=== PATIENT | male | born 1980 | race Caucasian/White ===

== ENCOUNTER 2020-08-24 12:15 | Inpatient (IN) | payer SELFPAY ==
[2020-08-24] MEDS ORDERED: METHYLPREDNISOLONE INJ 125 MG/2 ML SDV IV ONE (12:40)
--- NOTE | 2020-08-24 12:58 | ER Document Report ---
ED General <NAVID FERNANDEZ - Last Filed: 08/24/20 18:19> <IDRIS ARNOLD - Last Filed: 08/24/20 19:06> - General Chief Complaint: Breathing Difficulty Stated Complaint: SHORTNESS OF BREATH Notes: Patient is a 40-year-old male who presents emergency department with a chief complaint of shortness of breath. On August 16, the patient tested positive for COVID-19. Patient states that he has been short of breath. He went to [place] and when he came back, he states that he felt like he had jet lag, but then got tested and was positive for COVID-19. Patient takes Lexapro for depression. Denies any other past medical history. (NAVID FERNANDEZ) - Related Data Allergies/Adverse Reactions: No Known Allergies Allergy (Unverified 08/24/20 12:59) Past Medical History - General Information source: Patient - Social History Smoking Status: Unknown if Ever Smoked Family History: Reviewed & Not Pertinent <IDRIS ARNOLD - Last Filed: 08/24/20 19:06> Physical Exam <NAVID FERNANDEZ - Last Filed: 08/24/20 18:19> - Vital signs Vitals: Temp Pulse Resp BP Pulse Ox 99.6 F 116 H 24 H 144/82 H 91 L 08/24/20 12:27 08/24/20 12:27 08/24/20 12:27 08/24/20 12:27 08/24/20 12:27 - Notes Notes: PHYSICAL EXAMINATION: GENERAL: Appears ill. HEAD: Normocephalic, atraumatic. EYES: PERRL, conjunctiva normal, all extraocular movements intact, sclera nonicteric ENT: Moist mucous membranes. NECK: Supple, no noticeable swelling, redness, rash. Normal range of motion. LUNGS: Equal breath sounds bilaterally and clear to auscultation. No wheezes rales or rhonchi. CARDIOVASCULAR: S1-S2, tachycardic, regular rhythm. Radial pulses 2+, normal. ABDOMEN: Normoactive bowel sounds. Soft, nontender, no guarding, no rebound tenderness, and no masses palpated. EXTREMITIES: Normal strength and range of motion, no pitting or edema. No cyanosis. NEUROLOGICAL: Moves all extremities upon command. Strength 5/5 in all extremities. PSYCH: Normal mood, normal affect. SKIN: Warm, dry. No rash, lesions, ulcerations noted. Normal skin turgor. (TIMOTEO FERNANDEZHANIE Claudia) Course - Laboratory Result Diagrams: 08/24/20 12:50 08/24/20 12:50 <NAVID FERNANDEZ - Last Filed: 08/24/20 18:19> - Laboratory Result Diagrams: 08/24/20 12:50 08/24/20 12:50 <IDRIS ARNOLD - Last Filed: 08/24/20 19:06> - Vital Signs Vital signs: Temp Pulse Resp BP Pulse Ox 99.6 F 116 H 40 H 152/83 H 90 L 08/24/20 12:27 08/24/20 12:27 08/24/20 15:00 08/24/20 14:53 08/24/20 17:00 - Laboratory Laboratory results interpreted by me: 08/24/20 08/24/20 08/24/20 12:50 12:50 15:55 RBC 4.09 L Hgb 12.9 L Hct 36.2 L Lymph % (Auto) 6.0 L Seg Neutrophils % 87.6 H Carbonic Acid 0.88 L ABG pH 7.54 H ABG pCO2 29.1 L ABG pO2 56.9 L ABG HCO3 24.3 H ABG O2 Saturation 93.0 L Sodium 133.8 L Glucose 117 H AST 62 H ALT 51 H Discharge - Discharge Admitting Provider: Indu (Hospitalist) Unit Admitted: Telemetry - COVID positive <NAVID FERNANDEZ - Last Filed: 08/24/20 18:19> <IDRIS ARNOLD - Last Filed: 08/24/20 19:06> - Discharge Clinical Impression: Hypoxia, COVID-19 Condition: Stable Disposition: ADMITTED INPATIENT
[2020-08-24 13:18] LABS: ABSOLUTE LYMPHOCYTES (AUTO) 0.5 10^3/uL (0.5-4.7); ABSOLUTE MONOCYTES (AUTO) 0.5 10^3/uL (0.1-1.4); ABSOLUTE NEUT (AUTO) 7.6 10^3/uL (1.7-8.2); BASOPHILS % (AUTO) 0.2 % (0-2); HEMATOCRIT 36.2 % (37.9-51.0); HEMOGLOBIN 12.9 g/dL (13.5-17.0); MEAN CORPUSCULAR HEMOGLOBIN 31.6 pg (27.0-33.4); MEAN CORPUSCULAR HGB CONC 35.7 g/dL (32.0-36.0); MEAN CORPUSCULAR VOLUME 89 fl (80-97); MONOCYTES % (AUTO) 6.2 % (3-13); PLATELET COUNT 193 10^3/uL (150-450); RED BLOOD COUNT 4.09 10^6/uL (4.35-5.55); SEGMENTED NEUTROPHILS % (AUTO) 87.6 % (42-78); TOTAL CELLS COUNTED % (AUTO) 100 %; WHITE BLOOD COUNT 8.7 10^3/uL (4.0-10.5)
[2020-08-24 13:52] LABS: ALKALINE PHOSPHATASE 66 U/L (38-126); ANION GAP 9 (5-19); ASPARTATE AMINO TRANSFERASE 62 U/L (17-59); BILIRUBIN,DIRECT 0.1 mg/dL (0.0-0.4); BILIRUBIN,TOTAL 0.7 mg/dL (0.2-1.3); BLOOD UREA NITROGEN 10 mg/dL (7-20); CALCIUM 8.6 mg/dL (8.4-10.2); CARBON DIOXIDE 26 mmol/L (22-30); CHLORIDE 99 mmol/L (98-107); GLUCOSE 117 mg/dL (75-110); POTASSIUM 3.8 mmol/L (3.6-5.0); TOTAL PROTEIN 7.7 g/dL (6.3-8.2)
--- NOTE | 2020-08-24 14:11 | RADIOLOGY REPORT (SQ) ---
EXAM DESCRIPTION: CHEST SINGLE VIEW IMAGES COMPLETED DATE/TIME: 08/24/2020 1:57 pm REASON FOR STUDY: sob COMPARISON: None. EXAM PARAMETERS: NUMBER OF VIEWS: One view. TECHNIQUE: Single frontal radiographic view of the chest acquired. RADIATION DOSE: NA LIMITATIONS: None. FINDINGS: LUNGS AND PLEURA: Infiltrate involving both lower lung zones greater on the left along the lateral aspect of the lung. Infectious etiology should be considered. Chronic changes scarring can not be excluded without previous imaging studies of the chest. MEDIASTINUM AND HILAR STRUCTURES: No masses. Contour normal. HEART AND VASCULAR STRUCTURES: Heart normal in size. Normal vasculature. BONES: No acute findings. HARDWARE: None in the chest. OTHER: No other significant finding. IMPRESSION: Atelectasis or infiltrate both lower lung zones. Scarring possible but cannot be determ ined without previous imaging studies of the chest. TECHNICAL DOCUMENTATION: JOB ID: [id number] 2010 [employer]- All Rights Reserved Reading location - IP/workstation name: [email or web address]
[2020-08-24] MEDS ORDERED: IPRATROPIUM/ALBUTEROL 0.5-2.5 MG/3 ML AMPUL NEB ONE (14:54)
[2020-08-24] MEDS ORDERED: ACETAMINOPHEN 325 MG TABLET PO ONE (14:54)
[2020-08-24] MEDS ORDERED: AZITHROMYCIN INJ 500 MG VIAL IV ONE (14:56)
--- NOTE | 2020-08-24 18:07 | EKG REPORT ---
SEVERITY:- OTHERWISE NORMAL ECG - SINUS TACHYCARDIA : Confirmed by: Bill Truong MD 24-Aug-2020 18:06:32
[2020-08-24 18:31] LABS: ARTERIAL BLOOD BASE EXCESS 2.7 mmol/L; ARTERIAL BLOOD FIO2 ROOM AIR; ARTERIAL BLOOD H2CO3 0.88 mmol/L (1.05-1.35); ARTERIAL BLOOD HCO3 24.3 mmol/L (20-24); ARTERIAL BLOOD PCO2 29.1 mmHg (35-45); ARTERIAL BLOOD PH 7.54 (7.35-7.45); ARTERIAL BLOOD PO2 56.9 mmHg (80-100); ARTERIAL BLOOD TOTAL CO2 25.2 mmol/L (23-27)
--- NOTE | 2020-08-24 18:56 | ER Document Report ---
ED Respiratory Problem - General Chief Complaint: Shortness Of Breath Stated Complaint: SHORTNESS OF BREATH Time Seen by Provider: 08/24/20 14:09 Notes: Patient is a 40-year-old male who presents emergency department with a chief complaint of shortness of breath. On August 16, the patient tested positive for COVID-19. Patient states that he has been short of breath. He went to [place] and when he came back, he states that he felt like he had jet lag, but then got tested and was positive for COVID-19. Patient takes Lexapro for depression. Denies any other past medical history. - Related Data Allergies/Adverse Reactions: No Known Allergies Allergy (Unverified 08/24/20 12:59) Past Medical History - General Information source: Patient - Social History Smoking Status: Never Smoker Frequency of alcohol use: Occasional Drug Abuse: None Family History: Reviewed & Not Pertinent Review of Systems - Review of Systems Notes: REVIEW OF SYSTEMS: CONSTITUTIONAL : Denies recent unintentional weight loss. See HPI. EENT: Denies eye, ear, throat, or mouth pain, discharge, or symptoms. Denies nasal or sinus congestion. CARDIOVASCULAR: Denies chest pain. RESPIRATORY: See HPI. GASTROINTESTINAL: Denies nausea, vomiting, and diarrhea. Denies abdominal pain. Denies constipation. GENITOURINARY: Denies difficulty urinating, burning, blood in urine, urgency or frequency. MUSCULOSKELETAL: Denies neck and back pain. Denies joint pain or swelling. SKIN: Denies rash, itchiness, or lesions HEMATOLOGIC : Denies easy bruising or bleeding. LYMPHATIC: Denies swollen, painful, enlarged glands. NEUROLOGICAL: Denies no numbness or tingling denies weakness. Denies headache. Denies altered mental status. Denies alteration in speech. PSYCHIATRIC: Denies stress, anxiety, alteration in sleep patterns, or depression. All other systems reviewed and negative. Physical Exam - Vital signs Vitals: Temp Pulse Resp BP Pulse Ox 99.6 F 116 H 24 H 144/82 H 91 L 08/24/20 12:27 08/24/20 12:27 08/24/20 12:27 08/24/20 12:27 08/24/20 12:27 - Notes Notes: PHYSICAL EXAMINATION: GENERAL: Appears ill. HEAD: Normocephalic, atraumatic. EYES: PERRL, conjunctiva normal, all extraocular movements intact, sclera non icteric ENT: Moist mucous membranes. NECK: Supple, no noticeable swelling, redness, rash. Normal range of motion. LUNGS: Equal breath sounds bilaterally and clear to auscultation. No wheezes ra les or rhonchi. CARDIOVASCULAR: S1-S2, tachycardic, regular rhythm. Radial pulses 2+, normal. ABDOMEN: Normoactive bowel sounds. Soft, nontender, no guarding, no rebound tenderness, and no masses palpated. EXTREMITIES: Normal strength and range of motion, no pitting or edema. No cyanosis. NEUROLOGICAL: Moves all extremities upon command. Strength 5/5 in all extremities. PSYCH: Normal mood, normal affect. SKIN: Warm, dry. No rash, lesions, ulcerations noted. Normal skin turgor. Course - Re-evaluation Re-evalutation: 08/24/20 18:15 Hematology does not show a leukocytosis, but there is a left shift. Pneumonia noted on chest x-ray. Patient received azithromycin. Blood gas shows hypoxemia with a PO2 of 56.9 O2 saturation of 93%. This was on room air. LFTs are slightly elevated, most likely due to fatty liver disease. I spoke with Mercy Cruz NP. Patient will be admitted to the telemetry floor for COVID-19. - Vital Signs Vital signs: Temp Pulse Resp BP Pulse Ox 99.6 F 116 H 40 H 152/83 H 90 L 08/24/20 12:27 08/24/20 12:27 08/24/20 15:00 08/24/20 14:53 08/24/20 17:00 - Laboratory Result Diagrams: 08/24/20 12:50 08/24/20 12:50 Laboratory results interpreted by me: 08/24/20 08/24/20 08/24/20 12:50 12:50 15:55 RBC 4.09 L Hgb 12.9 L Hct 36.2 L Lymph % (Auto) 6.0 L Seg Neutrophils % 87.6 H Carbonic Acid 0.88 L ABG pH 7.54 H ABG pCO2 29.1 L ABG pO2 56.9 L ABG HCO3 24.3 H ABG O2 Saturation 93.0 L Sodium 133.8 L Glucose 117 H AST 62 H ALT 51 H Discharge - Discharge Clinical Impression: Hypoxia, COVID-19 Condition: Stable Disposition: ADMITTED INPATIENT Admitting Provider: Indu (Hospitalist) Unit Admitted: Telemetry - COVID positive
[2020-08-24] MEDS ORDERED: ALBUTEROL SULFATE 0.083% NEB 2.5 MG/3 ML AMPUL NEB PRN (19:12)
[2020-08-24] MEDS ORDERED: ACETAMINOPHEN 325 MG TABLET PO PRN (19:12)
[2020-08-24] MEDS ORDERED: PROMETHAZINE HCL INJ 25 MG/1 ML VIAL IV PRN (19:17)
[2020-08-24] MEDS ORDERED: MAG HYDROX/AL HYDROX/SIMETH SUSP 30 ML UDCUP PO PRN (19:17)
[2020-08-24] MEDS ORDERED: KETOROLAC TROMETHAMINE INJ/PF 30 MG/1 ML SDV IV PRN (19:18)
[2020-08-24] MEDS ORDERED: GUAIFENESIN SYRP 200 MG/10 ML UDC PO PRN (19:18)
[2020-08-24] MEDS ORDERED: PHARMACY COMMUNICATION ORDER MC NR (19:30)
[2020-08-24] MEDS ORDERED: LORAZEPAM INJ 2 MG/1 ML VIAL IV PRN (19:44)
--- NOTE | 2020-08-24 19:47 | PDOC H&P ---
History of Present Illness Admission Date/PCP: 08/24/20 18:37 Patient complains of: Shortness of breath History of Present Illness: MADAY BRUNO is a 40 year old male with a past medical history significant for depression and heavy EtOH use (sixpack beer daily; no history of dependence/withdrawal) who tested positive for COVID-19 on 08/16/2020 at the [facility]. Patient reports that he has had progressively worsening fatigue, generalized malaise, dyspnea on exertion (able to walk approximately 10 to 15 feet prior to needing to rest), 3-4 word tachypnea, nonproductive cough, pleuritic chest pain, subjective fever with shaking chills and night sweats, loss of taste and smell, and diarrhea. Patient reports that his spouse tested positive at the same time; she has recovered well but he continued to worsen. After prompting from her, he sought evaluation in the emergency department. In the emergency department he was found to have a fever of 99.6, tachycardia (HR 104) slightly elevated blood pressure, tachypnea (RR 40), and hypoxia on room air (90%). CBC showed neutrophilia, ABG reveals uncompensated respiratory alkalosis, and chemistry overall unremarkable. Chest x-ray demonstrates bibasilar infiltrates. He was provided supplemental oxygen, Solu-Medrol, and azithromycin. He is referred to the hospitalist service for further evaluation and management of the above-stated complaints and findings. Past Medical History Cardiac Medical History: Reports: None Pulmonary Medical History: Reports: None EENT Medical History: Reports: None Neurological Medical History: Reports: None Endocrine Medical History: Reports: Obesity Renal/ Medical History: Reports: None Malignancy Medical History: Reports: None GI Medical History: Reports: None Musculoskeltal Medical History: Reports: None Skin Medical History: Reports: None Psychiatric Medical History: Reports: Depression Traumatic Medical History: Reports: None Hematology: Reports: None Infectious Medical History: Reports: None Past Surgical History Past Surgical History: Reports: Orthopedic Surgery - Right wrist Social History Information Source: Patient Lives with: Family Smoking Status: Never Smoker Electronic Cigarette use?: No Frequency of Alcohol Use: Heavy Amount of Alcoholic Beverages Per Day: 6 beers Hx Recreational Drug Use: No Hx Prescription Drug Abuse: No - Advance Directive Resuscitation Status: Full Code Family History Family History: Reviewed & Not Pertinent Parental Family History Reviewed: Yes Children Family History Reviewed: Yes Sibling(s) Family History Reviewed.: Yes Medication/Allergy Home Medications: No Home Medications 08/24/20 Allergies/Adverse Reactions: No Known Allergies Allergy (Unverified 08/24/20 12:59) Review of Systems Constitutional: PRESENT: anorexia, chills, fatigue, fever(s), headache(s), night sweats, weakness. ABSENT: weight gain, weight loss Eyes: ABSENT: visual disturbances Ears: ABSENT: hearing changes Cardiovascular: PRESENT: dyspnea on exertion. ABSENT: chest pain, edema, orthropnea, palpitations Respiratory: PRESENT: cough, dyspnea, hemoptysis, sputum Gastrointestinal: PRESENT: diarrhea. ABSENT: abdominal pain, constipation, hematemesis, hematochezia, nausea, vomiting Genitourinary: ABSENT: dysuria, hematuria Musculoskeletal: ABSENT: joint swelling Integumentary: ABSENT: rash, wounds Neurological: ABSENT: abnormal gait, abnormal speech, confusion, dizziness, focal weakness, syncope Psychiatric: ABSENT: anxiety, depression, homidical ideation, suicidal ideation Endocrine: ABSENT: cold intolerance, heat intolerance, polydipsia, polyuria Hematologic/Lymphatic: ABSENT: easy bleeding, easy bruising Physical Exam Vital Signs: Temp Pulse Resp BP Pulse Ox 99.6 F 116 H 40 H 152/83 H 90 L 08/24/20 12:27 08/24/20 12:27 08/24/20 15:00 08/24/20 14:53 08/24/20 17:00 General appearance: PRESENT: no acute distress, cooperative, obese, well- developed, well-nourished, other - Acutely ill-appearing Head exam: PRESENT: atraumatic, normocephalic Eye exam: PRESENT: conjunctiva pink, EOMI, PERRLA. ABSENT: scleral icterus Mouth exam: PRESENT: moist, tongue midline Respiratory exam: PRESENT: clear to auscultation tonya, symmetrical, tachypnea, other - Supplemental oxygen by nasal cannula. ABSENT: rales, rhonchi, wheezes Cardiovascular exam: PRESENT: RRR, tachycardia. ABSENT: diastolic murmur, rubs, systolic murmur Pulses: PRESENT: normal dorsalis pedis pul Vascular exam: PRESENT: normal capillary refill GI/Abdominal exam: PRESENT: normal bowel sounds, soft. ABSENT: distended, guarding, mass, organolmegaly, rebound, tenderness Rectal exam: PRESENT: deferred Extremities exam: PRESENT: full ROM. ABSENT: calf tenderness, clubbing, pedal edema Musculoskeletal exam: PRESENT: ambulatory Neurological exam: PRESENT: alert, awake, oriented to person, oriented to place, oriented to time, oriented to situation, CN II-XII grossly intact. ABSENT: motor sensory deficit Psychiatric exam: PRESENT: appropriate affect, normal mood. ABSENT: homicidal ideation, suicidal ideation Skin exam: PRESENT: dry, intact, warm. ABSENT: cyanosis, rash Results Laboratory Results: 08/24/20 12:50 08/24/20 12:50 08/24/20 08/24/20 08/24/20 12:50 12:50 15:55 WBC 8.7 RBC 4.09 L Hgb 12.9 L Hct 36.2 L MCV 89 MCH 31.6 MCHC 35.7 RDW 13.0 Plt Count 193 Seg Neutrophils % 87.6 H Carbonic Acid 0.88 L HCO3/H2CO3 Ratio 27:1 ABG pH 7.54 H ABG pCO2 29.1 L ABG pO2 56.9 L ABG HCO3 24.3 H ABG O2 Saturation 93.0 L ABG Base Excess 2.7 FiO2 ROOM AIR Sodium 133.8 L Potassium 3.8 Chloride 99 Carbon Dioxide 26 Anion Gap 9 BUN 10 Creatinine 0.69 Est GFR ( Amer) > 60 Glucose 117 H Calcium 8.6 Total Bilirubin 0.7 AST 62 H Alkaline Phosphatase 66 Total Protein 7.7 Albumin 4.0 08/24/20 12:50 Troponin I < 0.012 Impressions: Chest X-Ray 08/24/20 13:07 IMPRESSION: Atelectasis or infiltrate both lower lung zones. Scarring possible but cannot be determined without previous imaging studies of the chest. Assessment and Plan - Diagnosis (1) Pneumonia due to COVID-19 virus Is this a current diagnosis for this admission?: Yes Plan: Patient tested COVID positive 08/16/2020 at outpatient facility. We will check d-dimer, ferritin, CRP, LDH. blood and sputum cultures are pending. Patient is admitted to the medical floor on continuous cardiac telemetry and pulse oximetry. Consider full dose Lovenox pending d-dimer results. Provide supplemental oxygen and CPAP as needed maintain saturations greater than 90%. As needed nebulizer treatments. IV dexamethasone. P.o. azithromycin x5-day course IV remdesivir x5-day course Covid convalescent plasma Zinc, vitamin D, vitamin C, and melatonin supplementation. Encourage pulmonary toilet. Isolation precautions. Patient confirms FULL CODE status. (2) Acute respiratory failure with hypoxia Is this a current diagnosis for this admission?: Yes Plan: Secondary to #1. ABG shows uncompensated respiratory alkalosis with hypoxia. Chest x-ray shows bilateral infiltrates. Evaluation management as above. (3) Diarrhea due to COVID-19 Is this a current diagnosis for this admission?: Yes Plan: Encourage p.o. fluid. (4) Alcohol use Is this a current diagnosis for this admission?: Yes Plan: Patient admits to drinking 6 cans of beer daily. He denies history of dependen ce or withdrawal. We will ask nurses to monitor CIWA every 4 hours. As needed Ativan as needed and notify provider of score greater than 10. Daily thiamine and folic acid supplementation. - Time Time Spent with patient: 35 or more minutes Medications reviewed and adjusted accordingly: Yes Anticipated Discharge Disposition: Home, Self Care Anticipated Discharge Timeframe: >72 hrs - Inpatient Certification Based on my medical assessment, after consideration of the patient's comorbidities, presenting symptoms, or acuity I expect that the services needed warrant INPATIENT care.: Yes I certify that my determination is in accordance with my understanding of Medicare's requirements for reasonable and necessary INPATIENT services [42 CFR 412.3e].: Yes Medical Necessity: Failure to Improve With Outpatient Therapy, Need Close Monitoring Due to Risk of Patient Decompensation, Need for Nebulizer Therapy and Monitoring of Response, Risk of Complication if Not Cared For in Hospital
[2020-08-24 20:40] LABS: C-REACTIVE PROTEIN 86.6 mg/L (<10.0)
[2020-08-24] MEDS ORDERED: REMDESIVIR (EUA) 200 MG in NORMAL SALINE 250 ML IV ONE (22:00)
[2020-08-24] MEDS: ENOXAPARIN SODIUM INJ 40 MG/0.4 ML DISP.SYRIN SUBCUT SCH (22:11)
[2020-08-24] MEDS: MELATONIN 3 MG TABLET PO SCH (22:12)
[2020-08-25 06:03] LABS: ABSOLUTE LYMPHOCYTES (AUTO) 0.5 10^3/uL (0.5-4.7); ABSOLUTE MONOCYTES (AUTO) 0.4 10^3/uL (0.1-1.4); ABSOLUTE NEUT (AUTO) 4.6 10^3/uL (1.7-8.2); BASOPHILS % (AUTO) 0.1 % (0-2); HEMATOCRIT 36.1 % (37.9-51.0); LYMPHOCYTES % (AUTO) 8.8 % (13-45); MEAN CORPUSCULAR HEMOGLOBIN 31.8 pg (27.0-33.4); MEAN CORPUSCULAR HGB CONC 36.2 g/dL (32.0-36.0); MEAN CORPUSCULAR VOLUME 88 fl (80-97); MONOCYTES % (AUTO) 7.8 % (3-13); PLATELET COUNT 208 10^3/uL (150-450); RED BLOOD COUNT 4.11 10^6/uL (4.35-5.55); SEGMENTED NEUTROPHILS % (AUTO) 83.3 % (42-78); TOTAL CELLS COUNTED % (AUTO) 100 %; WHITE BLOOD COUNT 5.5 10^3/uL (4.0-10.5)
[2020-08-25 06:16] LABS: ALBUMIN 3.8 g/dL (3.5-5.0); ALKALINE PHOSPHATASE 69 U/L (38-126); ANION GAP 10 (5-19); ASPARTATE AMINO TRANSFERASE 66 U/L (17-59); BILIRUBIN,DIRECT 0.1 mg/dL (0.0-0.4); BILIRUBIN,TOTAL 0.6 mg/dL (0.2-1.3); BLOOD UREA NITROGEN 13 mg/dL (7-20); CALCIUM 9.2 mg/dL (8.4-10.2); CARBON DIOXIDE 26 mmol/L (22-30); CHLORIDE 100 mmol/L (98-107); GLUCOSE 152 mg/dL (75-110); POTASSIUM 4.1 mmol/L (3.6-5.0)
[2020-08-25] MEDS: THIAMINE HCL 100 MG TABLET PO SCH (09:52)
[2020-08-25] MEDS: FOLIC ACID 1 MG TABLET PO SCH (09:52)
[2020-08-25] MEDS: ZINC SULFATE 220 MG CAPSULE PO SCH (09:52)
[2020-08-25] MEDS: AZITHROMYCIN 250 MG TABLET PO SCH (09:52)
[2020-08-25] MEDS: ASCORBIC ACID 500 MG TABLET PO SCH ×2 (09:52→17:28)
[2020-08-25] MEDS: DOCUSATE SODIUM 100 MG CAPSULE PO SCH (09:52)
[2020-08-25] MEDS: ASPIRIN 81 MG TABLET, ENT COATED PO SCH (09:52)
[2020-08-25] MEDS: CHOLECALCIFEROL (D3) 1,000 UNIT (25 MCG) TABLET PO SCH (09:52)
[2020-08-25] MEDS: ENOXAPARIN SODIUM INJ 40 MG/0.4 ML DISP.SYRIN SUBCUT SCH (09:53)
[2020-08-25] MEDS ORDERED: DEXAMETHASONE SOD PHOS INJ 10 MG/1 ML VIAL IV SCH (10:00)
[2020-08-25] MEDS: DEXAMETHASONE SOD PHOSPHATE INJ 4 MG/1 ML VIAL IV SCH (11:25)
--- NOTE | 2020-08-25 15:27 | PDOC PROGRESS REPORT ---
Subjective Progress Note for:: 08/25/20 Subjective:: MADAY BRUNO is a 40 year old male with a past medical history significant for depression and heavy EtOH use (sixpack beer daily; no history of dependence/withdrawal) who was admitted 08/24/2020 with acute respiratory failure with hypoxia secondary to COVID-19 pneumonia. Patient was seen on afternoon rounds. He was found sitting up to the recliner, comfortably, on supplemental oxygen at 3 L/min. He is not home O2 dependent. Currently maintaining oxygen saturations of 99%; O2 decreased to 2 L/min. Patient admits to continued dyspnea at rest, dyspnea on minimal exertion, nonproductive cough, pleuritic chest pain, and fatigue. Overall, he does feel better than he did prior to coming in and attributes this primarily to supplemental oxygen.T-max 99.6/24 hours. He denies chest pain, palpitations, abdominal pain, nausea vomiting and diarrhea at this time. He has no questions or concerns. No concerns per nursing. Reason For Visit: ACUTE RESPIRATORY FAILURE WITH HYPOXIA,COVID 19 Physical Exam Vital Signs: Temp Pulse Resp BP Pulse Ox 98.0 F 88 18 134/78 H 92 08/25/20 12:54 08/25/20 12:54 08/25/20 12:54 08/25/20 12:54 08/25/20 12:54 Intake & Output 08/24/20 08/25/20 08/26/20 06:59 06:59 06:59 Intake Total 550 Balance 550 Weight 124.6 kg General appearance: PRESENT: no acute distress, cooperative, well-developed, well-nourished Head exam: PRESENT: atraumatic, normocephalic Eye exam: PRESENT: conjunctiva pink, EOMI, PERRLA. ABSENT: scleral icterus Mouth exam: PRESENT: moist, tongue midline Respiratory exam: PRESENT: clear to auscultation tonya, symmetrical, unlabored, other - Supplemental oxygen by nasal cannula. ABSENT: rales, rhonchi, wheezes Cardiovascular exam: PRESENT: RRR. ABSENT: diastolic murmur, rubs, systolic murmur Vascular exam: PRESENT: normal capillary refill Extremities exam: PRESENT: full ROM. ABSENT: calf tenderness, clubbing, pedal edema Musculoskeletal exam: PRESENT: ambulatory Neurological exam: PRESENT: alert, awake, oriented to person, oriented to place, oriented to time, oriented to situation, CN II-XII grossly intact. ABSENT: motor sensory deficit Psychiatric exam: PRESENT: appropriate affect, normal mood. ABSENT: homicidal ideation, suicidal ideation Skin exam: PRESENT: dry, intact, warm. ABSENT: cyanosis, rash Results Laboratory Results: 08/25/20 04:44 08/25/20 04:44 08/24/20 08/24/20 08/24/20 15:55 19:45 19:45 WBC RBC Hgb Hct MCV MCH MCHC RDW Plt Count Seg Neutrophils % Carbonic Acid 0.88 L HCO3/H2CO3 Ratio 27:1 ABG pH 7.54 H ABG pCO2 29.1 L ABG pO2 56.9 L ABG HCO3 24.3 H ABG O2 Saturation 93.0 L ABG Base Excess 2.7 FiO2 ROOM AIR Sodium Potassium Chloride Carbon Dioxide Anion Gap BUN Creatinine Est GFR ( Amer) Glucose Calcium Ferritin 1390.00 H Total Bilirubin AST Alkaline Phosphatase C-Reactive Protein 86.6 H Total Protein Albumin Blood Type B POSITIVE Antibody Screen NEGATIVE 08/25/20 08/25/20 04:44 04:44 WBC 5.5 RBC 4.11 L Hgb 13.0 L Hct 36.1 L MCV 88 MCH 31.8 MCHC 36.2 H RDW 13.0 Plt Count 208 Seg Neutrophils % 83.3 H Carbonic Acid HCO3/H2CO3 Ratio ABG pH ABG pCO2 ABG pO2 ABG HCO3 ABG O2 Saturation ABG Base Excess FiO2 Sodium 135.5 L Potassium 4.1 Chloride 100 Carbon Dioxide 26 Anion Gap 10 BUN 13 Creatinine 0.63 Est GFR ( Amer) > 60 Glucose 152 H Calcium 9.2 Ferritin Total Bilirubin 0.6 AST 66 H Alkaline Phosphatase 69 C-Reactive Protein Total Protein 7.0 Albumin 3.8 Blood Type Antibody Screen 08/24/20 15:40 Blood Blood Culture (PCR) - Final Staphylococcus Species 08/24/20 12:50 Troponin I < 0.012 Impressions: Chest X-Ray 08/24/20 13:07 IMPRESSION: Atelectasis or infiltrate both lower lung zones. Scarring possible but cannot be determined without previous imaging studies of the chest. Assessment and Plan - Diagnosis (1) Pneumonia due to COVID-19 virus Is this a current diagnosis for this admission?: Yes Plan: Patient tested COVID positive 08/16/2020 at outpatient facility. D-dimer 0.67 Ferritin 1390, LDH 389, CRP 86.6 Sputum culture pending. Blood culture (1/4 bottles) with coag negative staph. Patient is admitted to the medical floor on continuous cardiac telemetry and pulse oximetry. Provide supplemental oxygen and CPAP as needed maintain saturations greater than 90%. As needed nebulizer treatments. IV dexamethasone. P.o. azithromycin x5-day course IV remdesivir x5-day course Covid convalescent plasma Zinc, vitamin D, vitamin C, and melatonin supplementation. Encourage pulmonary toilet. Isolation precautions. Patient confirms FULL CODE status. (2) Acute respiratory failure with hypoxia Is this a current diagnosis for this admission?: Yes Plan: Secondary to #1. ABG shows uncompensated respiratory alkalosis with hypoxia. Chest x-ray shows bilateral infiltrates. Evaluation management as above. (3) Diarrhea due to COVID-19 Is this a current diagnosis for this admission?: Yes Plan: Encourage p.o. fluid. (4) Alcohol use Is this a current diagnosis for this admission?: Yes Plan: Patient admits to drinking 6 cans of beer daily. He denies history of dependence or withdrawal. We will ask nurses to monitor CIWA every 4 hours. As needed Ativan as needed and notify provider of score greater than 10. Daily thiamine and folic acid supplementation. - Time Time Spent with patient: 25-34 minutes Medications reviewed and adjusted accordingly: Yes Anticipated Discharge Disposition: Home, Self Care Anticipated Discharge Timeframe: >72 hrs
[2020-08-25] MEDS: REMDESIVIR (EUA) 100 MG in NORMAL SALINE 250 ML IV SCH (21:36)
[2020-08-25] MEDS: MELATONIN 3 MG TABLET PO SCH (21:39)
[2020-08-26 07:04] LABS: ABSOLUTE LYMPHOCYTES (AUTO) 0.9 10^3/uL (0.5-4.7); ABSOLUTE MONOCYTES (AUTO) 0.9 10^3/uL (0.1-1.4); BASOPHILS % (AUTO) 0.1 % (0-2); HEMATOCRIT 37.1 % (37.9-51.0); HEMOGLOBIN 12.8 g/dL (13.5-17.0); LYMPHOCYTES % (AUTO) 6.8 % (13-45); MEAN CORPUSCULAR HGB CONC 34.6 g/dL (32.0-36.0); MEAN CORPUSCULAR VOLUME 90 fl (80-97); PLATELET COUNT 286 10^3/uL (150-450); RED BLOOD COUNT 4.14 10^6/uL (4.35-5.55); RED CELL DISTRIBUTION WIDTH 13.3 % (11.5-14.0); SEGMENTED NEUTROPHILS % (AUTO) 86.1 % (42-78); TOTAL CELLS COUNTED % (AUTO) 100 %
[2020-08-26 07:06] LABS: WHITE BLOOD COUNT 12.8 10^3/uL (4.0-10.5)
[2020-08-26 07:15] LABS: ALBUMIN 3.5 g/dL (3.5-5.0); ALKALINE PHOSPHATASE 58 U/L (38-126); ANION GAP 11 (5-19); ASPARTATE AMINO TRANSFERASE 58 U/L (17-59); BILIRUBIN,DIRECT 0.2 mg/dL (0.0-0.4); BILIRUBIN,TOTAL 0.6 mg/dL (0.2-1.3); BLOOD UREA NITROGEN 18 mg/dL (7-20); CALCIUM 8.9 mg/dL (8.4-10.2); CARBON DIOXIDE 26 mmol/L (22-30); CHLORIDE 102 mmol/L (98-107); GLUCOSE 116 mg/dL (75-110); POTASSIUM 4.1 mmol/L (3.6-5.0); TOTAL PROTEIN 6.8 g/dL (6.3-8.2)
[2020-08-26] MEDS: ASPIRIN 81 MG TABLET, ENT COATED PO SCH (09:48)
[2020-08-26] MEDS: ASCORBIC ACID 500 MG TABLET PO SCH ×2 (09:48→17:56)
[2020-08-26] MEDS: FOLIC ACID 1 MG TABLET PO SCH (09:49)
[2020-08-26] MEDS: ENOXAPARIN SODIUM INJ 40 MG/0.4 ML DISP.SYRIN SUBCUT SCH (09:49)
[2020-08-26] MEDS: CHOLECALCIFEROL (D3) 1,000 UNIT (25 MCG) TABLET PO SCH (09:49)
[2020-08-26] MEDS: DEXAMETHASONE SOD PHOSPHATE INJ 4 MG/1 ML VIAL IV SCH (09:49)
[2020-08-26] MEDS: ZINC SULFATE 220 MG CAPSULE PO SCH (09:49)
[2020-08-26] MEDS: DOCUSATE SODIUM 100 MG CAPSULE PO SCH (09:49)
[2020-08-26] MEDS: AZITHROMYCIN 250 MG TABLET PO SCH (09:49)
[2020-08-26] MEDS: THIAMINE HCL 100 MG TABLET PO SCH (09:49)
--- NOTE | 2020-08-26 17:11 | PDOC PROGRESS REPORT ---
Subjective Progress Note for:: 08/26/20 Subjective:: MADAY BRUNO is a 40 year old male with a past medical history significant for depression and heavy EtOH use (sixpack beer daily; no history of dependence/withdrawal) who was admitted 08/24/2020 with acute respiratory failure with hypoxia secondary to COVID-19 pneumonia. Patient was seen on afternoon rounds. He was found resting in bed, comfortably, on room air. Patient reports dyspnea has resolved. Does continue to have a nonproductive cough, though this is decreased and his pleuritic chest pain has resolved. Overall, he does feels much better. He denies chest pain, palpitations, abdominal pain, nausea vomiting and diarrhea at this time. He has no questions or concerns. No concerns per nursing. Reason For Visit: ACUTE RESPIRATORY FAILURE WITH HYPOXIA,COVID 19 Physical Exam Vital Signs: Temp Pulse Resp BP Pulse Ox 98.2 F 83 24 H 141/77 H 95 08/26/20 12:48 08/26/20 14:00 08/26/20 12:48 08/26/20 12:48 08/26/20 12:48 Intake & Output 08/25/20 08/26/20 08/27/20 06:59 06:59 06:59 Intake Total 550 969 Balance 550 969 Weight 124.6 kg 124.6 kg General appearance: PRESENT: no acute distress, cooperative, well-developed, well-nourished Head exam: PRESENT: atraumatic, normocephalic Eye exam: PRESENT: conjunctiva pink, EOMI, PERRLA. ABSENT: scleral icterus Mouth exam: PRESENT: moist, tongue midline Respiratory exam: PRESENT: clear to auscultation tonya, symmetrical, unlabored, other - Room air. ABSENT: rales, rhonchi, wheezes Cardiovascular exam: PRESENT: RRR. ABSENT: diastolic murmur, rubs, systolic murmur Vascular exam: PRESENT: normal capillary refill Extremities exam: PRESENT: full ROM. ABSENT: calf tenderness, clubbing, pedal edema Musculoskeletal exam: PRESENT: ambulatory Neurological exam: PRESENT: alert, awake, oriented to person, oriented to place, oriented to time, oriented to situation, CN II-XII grossly intact. ABSENT: motor sensory deficit Psychiatric exam: PRESENT: appropriate affect, normal mood. ABSENT: homicidal ideation, suicidal ideation Skin exam: PRESENT: dry, intact, warm. ABSENT: cyanosis, rash Results Laboratory Results: 08/26/20 06:35 08/26/20 06:35 08/24/20 08/26/20 08/26/20 19:45 06:35 06:35 WBC 12.8 H D RBC 4.14 L Hgb 12.8 L Hct 37.1 L MCV 90 MCH 31.0 MCHC 34.6 RDW 13.3 Plt Count 286 Seg Neutrophils % 86.1 H Sodium 138.8 Potassium 4.1 Chloride 102 Carbon Dioxide 26 Anion Gap 11 BUN 18 Creatinine 0.67 Est GFR ( Amer) > 60 Glucose 116 H Calcium 8.9 Total Bilirubin 0.6 AST 58 Alkaline Phosphatase 58 Total Protein 6.8 Albumin 3.5 Blood Type B POSITIVE Antibody Screen NEGATIVE 08/24/20 20:10 Sputum Gram Stain - Final 08/24/20 20:10 Sputum Sputum Culture - Final NORMAL PRINCESS 08/24/20 15:40 Blood Blood Culture (PCR) - Final Staphylococcus Species 08/24/20 18:15 Blood Blood Culture (PCR) - Final Staphylococcus Species 08/24/20 12:50 Troponin I < 0.012 Impressions: Chest X-Ray 08/24/20 13:07 IMPRESSION: Atelectasis or infiltrate both lower lung zones. Scarring possible but cannot be determined without previous imaging studies of the chest. Assessment and Plan - Diagnosis (1) Pneumonia due to COVID-19 virus Is this a current diagnosis for this admission?: Yes Plan: Improved clinical condition; now maintaining oxygen saturations on room air. Patient tested COVID positive 08/16/2020 at outpatient facility. D-dimer 0.67 Ferritin 1390, LDH 389, CRP 86.6 Sputum culture pending. Blood culture (2/4 bottles) with coag negative staph. Presumed contaminant; will continue to monitor for final results. Patient is admitted to the medical floor on continuous cardiac telemetry and pulse oximetry. Provide supplemental oxygen and CPAP as needed maintain saturations greater than 90%. As needed nebulizer treatments. IV dexamethasone. P.o. azithromycin x5-day course IV remdesivir x5-day course Hold on Covid convalescent plasma; patient has requested to hold on convalescent plasma as he is rapidly improving. Zinc, vitamin D, vitamin C, and melatonin supplementation. Encourage pulmonary toilet. Isolation precautions. Patient confirms FULL CODE status. (2) Acute respiratory failure with hypoxia Is this a current diagnosis for this admission?: Yes Plan: Significantly improved. Secondary to #1. ABG shows uncompensated respiratory alkalosis with hypoxia. Chest x-ray shows bilateral infiltrates. Evaluation management as above. (3) Diarrhea due to COVID-19 Is this a current diagnosis for this admission?: Yes Plan: No further episodes of diarrhea. Encourage p.o. fluid. (4) Alcohol use Is this a current diagnosis for this admission?: Yes Plan: Patient admits to drinking 6 cans of beer daily. He denies history of dependence or withdrawal. We will ask nurses to monitor CIWA every 4 hours. As needed Ativan as needed and notify provider of score greater than 10. None needed thus far. Daily thiamine and folic acid supplementation. - Time Time Spent with patient: 25-34 minutes Medications reviewed and adjusted accordingly: Yes Anticipated Discharge Disposition: Home, Self Care Anticipated Discharge Timeframe: within 48 hours
[2020-08-26] MEDS: MELATONIN 3 MG TABLET PO SCH (23:42)
[2020-08-26] MEDS: REMDESIVIR (EUA) 100 MG in NORMAL SALINE 250 ML IV SCH (23:42)
[2020-08-27 07:31] LABS: HEMATOCRIT 36.7 % (37.9-51.0); HEMOGLOBIN 12.9 g/dL (13.5-17.0); MEAN CORPUSCULAR HEMOGLOBIN 31.4 pg (27.0-33.4); MEAN CORPUSCULAR HGB CONC 35.2 g/dL (32.0-36.0); MEAN CORPUSCULAR VOLUME 89 fl (80-97); PLATELET COUNT 310 10^3/uL (150-450); RED BLOOD COUNT 4.11 10^6/uL (4.35-5.55); RED CELL DISTRIBUTION WIDTH 13.1 % (11.5-14.0); WHITE BLOOD COUNT 8.8 10^3/uL (4.0-10.5)
[2020-08-27 07:53] LABS: ALBUMIN 3.3 g/dL (3.5-5.0); ALKALINE PHOSPHATASE 65 U/L (38-126); ANION GAP 9 (5-19); ASPARTATE AMINO TRANSFERASE 36 U/L (17-59); BILIRUBIN,DIRECT 0.1 mg/dL (0.0-0.4); BILIRUBIN,TOTAL 0.6 mg/dL (0.2-1.3); BLOOD UREA NITROGEN 15 mg/dL (7-20); CALCIUM 8.5 mg/dL (8.4-10.2); CARBON DIOXIDE 26 mmol/L (22-30); CHLORIDE 102 mmol/L (98-107); GLUCOSE 101 mg/dL (75-110); POTASSIUM 4.1 mmol/L (3.6-5.0); TOTAL PROTEIN 6.3 g/dL (6.3-8.2)
[2020-08-27 08:44] LABS: ABSOLUTE LYMPHOCYTES# (MANUAL) 0.9 10^3/uL (0.5-4.7); ABSOLUTE MONOCYTES # (MANUAL) 0.9 10^3/uL (0.1-1.4); BAND NEUTROPHILS % (MANUAL) 2 % (3-5); BASOPHILS % (MANUAL) 0 % (0-2); EOSINOPHILS % (MANUAL) 0 % (0-6); LYMPHOCYTES % (MANUAL) 10 % (13-45); MONOCYTES % (MANUAL) 10 % (3-13); SEGMENTED NEUTROPHILS % (MAN) 78 % (42-78); TOTAL CELLS COUNTED 100
[2020-08-27 08:45] LABS: PLATELET COMMENT ADEQUATE; RBC MORPHOLOGY COMMENT NORMO-CYTIC/CHROMIC
[2020-08-27] MEDS: DOCUSATE SODIUM 100 MG CAPSULE PO SCH (09:32)
[2020-08-27] MEDS: AZITHROMYCIN 250 MG TABLET PO SCH (09:32)
[2020-08-27] MEDS: DEXAMETHASONE SOD PHOSPHATE INJ 4 MG/1 ML VIAL IV SCH (09:32)
[2020-08-27] MEDS: THIAMINE HCL 100 MG TABLET PO SCH (09:32)
[2020-08-27] MEDS: ASCORBIC ACID 500 MG TABLET PO SCH ×2 (09:32→17:11)
[2020-08-27] MEDS: ASPIRIN 81 MG TABLET, ENT COATED PO SCH (09:33)
[2020-08-27] MEDS: ZINC SULFATE 220 MG CAPSULE PO SCH (09:33)
[2020-08-27] MEDS: CHOLECALCIFEROL (D3) 1,000 UNIT (25 MCG) TABLET PO SCH (09:33)
[2020-08-27] MEDS: FOLIC ACID 1 MG TABLET PO SCH (09:33)
[2020-08-27] MEDS: ENOXAPARIN SODIUM INJ 40 MG/0.4 ML DISP.SYRIN SUBCUT SCH (09:33)
[2020-08-27] MEDS ORDERED: NORMAL SALINE 250 ML IV PRN ×3 (13:47→13:56)
--- NOTE | 2020-08-27 14:25 | PDOC PROGRESS REPORT ---
Subjective Progress Note for:: 08/27/20 Subjective:: MADAY BRUNO is a 40 year old male with a past medical history significant for depression and heavy EtOH use (sixpack beer daily; no history of dependence/withdrawal) who was admitted 08/24/2020 with acute respiratory failure with hypoxia secondary to COVID-19 pneumonia. Patient was seen on afternoon rounds. He was found resting in bed, comfortably, on room air. Patient reports dyspnea has resolved. Does continue to have a nonproductive cough, though this is decreased and his pleuritic chest pain has resolved. Complains of severe fatigue today. On telemetry, patient is noted to have HR 80-90 and SpO2 >94% while at rest. With minimal activity (up to restroom) HR is 110-120 with SpO2 82%. He denies chest pain, palpitations, abdominal pain, nausea vomiting and diarrhea at this time. He has no questions or concerns. No concerns per nursing. Reason For Visit: ACUTE RESPIRATORY FAILURE WITH HYPOXIA,COVID 19 Physical Exam Vital Signs: Temp Pulse Resp BP Pulse Ox 98.0 F 76 18 121/77 96 08/27/20 11:15 08/27/20 11:15 08/27/20 11:15 08/27/20 11:15 08/27/20 11:15 Intake & Output 08/26/20 08/27/20 08/28/20 06:59 06:59 06:59 Intake Total 969 1980 Balance 969 1979 Weight 124.6 kg 124 kg General appearance: PRESENT: no acute distress, cooperative, well-developed, well-nourished - overweight, other - acutely ill appearing Head exam: PRESENT: atraumatic, normocephalic Eye exam: PRESENT: conjunctiva pink, EOMI, PERRLA. ABSENT: scleral icterus Mouth exam: PRESENT: moist, tongue midline Respiratory exam: PRESENT: clear to auscultation tonya, symmetrical, unlabored, other - hypoxia w/ activity. ABSENT: rales, rhonchi, wheezes Cardiovascular exam: PRESENT: RRR, tachycardia - w/ activity. ABSENT: diastolic murmur, rubs, systolic murmur Pulses: PRESENT: normal dorsalis pedis pul Vascular exam: PRESENT: normal capillary refill Extremities exam: PRESENT: full ROM. ABSENT: calf tenderness, clubbing, pedal edema Neurological exam: PRESENT: alert, awake, oriented to person, oriented to place, oriented to time, oriented to situation, CN II-XII grossly intact. ABSENT: motor sensory deficit Psychiatric exam: PRESENT: appropriate affect, normal mood. ABSENT: homicidal ideation, suicidal ideation Skin exam: PRESENT: dry, intact, warm. ABSENT: cyanosis, rash Results Laboratory Results: 08/27/20 06:55 08/27/20 06:55 08/24/20 08/27/20 08/27/20 19:45 06:55 06:55 WBC 8.8 RBC 4.11 L Hgb 12.9 L Hct 36.7 L MCV 89 MCH 31.4 MCHC 35.2 RDW 13.1 Plt Count 310 Seg Neutrophils % Not Reportable Sodium 137.1 Potassium 4.1 Chloride 102 Carbon Dioxide 26 Anion Gap 9 BUN 15 Creatinine 0.69 Est GFR ( Amer) > 60 Glucose 101 Calcium 8.5 Total Bilirubin 0.6 AST 36 Alkaline Phosphatase 65 Total Protein 6.3 Albumin 3.3 L Blood Type B POSITIVE Antibody Screen NEGATIVE 08/24/20 15:40 Blood Blood Culture (PCR) - Final Staphylococcus Species 08/24/20 20:10 Sputum Gram Stain - Final 08/24/20 20:10 Sputum Sputum Culture - Final NORMAL PRINCESS 08/24/20 18:15 Blood Blood Culture (PCR) - Final Staphylococcus Species 08/24/20 12:50 Troponin I < 0.012 Impressions: Chest X-Ray 08/24/20 13:07 IMPRESSION: Atelectasis or infiltrate both lower lung zones. Scarring possible but cannot be determined without previous imaging studies of the chest. Assessment and Plan - Diagnosis (1) Pneumonia due to COVID-19 virus Is this a current diagnosis for this admission?: Yes Plan: Waxing/waning symptoms; worse today. On telemetry, patient is noted to have HR 80-90 and SpO2 >94% while at rest. With minimal activity (up to restroom) HR is 110-120 with SpO2 82%. Patient tested COVID positive 08/16/2020 at outpatient facility. D-dimer 0.67 Ferritin 1390, LDH 389, CRP 86.6 Sputum culture pending. Blood culture (2/4 bottles) with coag negative staph. Presumed contaminant; will continue to monitor for final results. Patient is admitted to the medical floor on continuous cardiac telemetry and pulse oximetry. Provide supplemental oxygen and CPAP as needed maintain saturations greater than 90%. As needed nebulizer treatments. IV dexamethasone. P.o. azithromycin x5-day course IV remdesivir x5-day course Now agreeable to Covid convalescent plasma. Zinc, vitamin D, vitamin C, and melatonin supplementation. Encourage pulmonary toilet. Isolation precautions. Patient confirms FULL CODE status. (2) Acute respiratory failure with hypoxia Is this a current diagnosis for this admission?: Yes Plan: Significantly improved. Secondary to #1. ABG shows uncompensated respiratory alkalosis with hypoxia. Chest x-ray shows bilateral infiltrates. Evaluation management as above. (3) Diarrhea due to COVID-19 Is this a current diagnosis for this admission?: Yes Plan: No further episodes of diarrhea. Encourage p.o. fluid. (4) Alcohol use Is this a current diagnosis for this admission?: Yes Plan: Patient admits to drinking 6 cans of beer daily. He denies history of dependence or withdrawal. We will ask nurses to monitor CIWA every 4 hours. As needed Ativan as needed and notify provider of score greater than 10. None needed thus far. Daily thiamine and folic acid supplementation. - Time Time Spent with patient: 25-34 minutes Medications reviewed and adjusted accordingly: Yes Anticipated Discharge Disposition: Home, Self Care Anticipated Discharge Timeframe: within 72 hours - pending oxygen requirements
[2020-08-27] MEDS: BUPROPION HCL 75 MG TABLET PO SCH (17:11)
[2020-08-27] MEDS: REMDESIVIR (EUA) 100 MG in NORMAL SALINE 250 ML IV SCH (21:15)
[2020-08-27] MEDS: MELATONIN 3 MG TABLET PO SCH (21:15)
[2020-08-28 07:03] LABS: HEMATOCRIT 35.9 % (37.9-51.0); HEMOGLOBIN 12.8 g/dL (13.5-17.0); MEAN CORPUSCULAR HEMOGLOBIN 31.6 pg (27.0-33.4); MEAN CORPUSCULAR HGB CONC 35.6 g/dL (32.0-36.0); MEAN CORPUSCULAR VOLUME 89 fl (80-97); PLATELET COUNT 338 10^3/uL (150-450); RED BLOOD COUNT 4.05 10^6/uL (4.35-5.55); RED CELL DISTRIBUTION WIDTH 13.2 % (11.5-14.0); WHITE BLOOD COUNT 10.1 10^3/uL (4.0-10.5)
[2020-08-28 07:39] LABS: ALBUMIN 3.2 g/dL (3.5-5.0); ALKALINE PHOSPHATASE 67 U/L (38-126); ANION GAP 10 (5-19); ASPARTATE AMINO TRANSFERASE 36 U/L (17-59); BILIRUBIN,DIRECT 0.2 mg/dL (0.0-0.4); BILIRUBIN,TOTAL 0.7 mg/dL (0.2-1.3); BLOOD UREA NITROGEN 12 mg/dL (7-20); CALCIUM 8.5 mg/dL (8.4-10.2); CARBON DIOXIDE 28 mmol/L (22-30); CHLORIDE 99 mmol/L (98-107); GLUCOSE 91 mg/dL (75-110); POTASSIUM 4.2 mmol/L (3.6-5.0); TOTAL PROTEIN 6.1 g/dL (6.3-8.2)
[2020-08-28 07:40] LABS: ABSOLUTE LYMPHOCYTES# (MANUAL) 1.2 10^3/uL (0.5-4.7); ABSOLUTE MONOCYTES # (MANUAL) 0.6 10^3/uL (0.1-1.4); BAND NEUTROPHILS % (MANUAL) 3 % (3-5); BASOPHILS % (MANUAL) 0 % (0-2); EOSINOPHILS % (MANUAL) 0 % (0-6); LYMPHOCYTES % (MANUAL) 12 % (13-45); MONOCYTES % (MANUAL) 6 % (3-13); SEGMENTED NEUTROPHILS % (MAN) 79 % (42-78); TOTAL CELLS COUNTED 100
[2020-08-28 07:42] LABS: PLATELET COMMENT ADEQUATE; POLYCHROMASIA SLIGHT
[2020-08-28] MEDS ORDERED: (PENDING PHARMACY ID) (Bupropion Hcl [Bupropion Xl] 150 MG) PO SCH (08:00)
[2020-08-28] MEDS: BUPROPION HCL 75 MG TABLET PO SCH ×2 (09:09→17:03)
[2020-08-28] MEDS: THIAMINE HCL 100 MG TABLET PO SCH (09:09)
[2020-08-28] MEDS: DOCUSATE SODIUM 100 MG CAPSULE PO SCH (09:09)
[2020-08-28] MEDS: AZITHROMYCIN 250 MG TABLET PO SCH (09:09)
[2020-08-28] MEDS: ZINC SULFATE 220 MG CAPSULE PO SCH (09:09)
[2020-08-28] MEDS: CHOLECALCIFEROL (D3) 1,000 UNIT (25 MCG) TABLET PO SCH (09:10)
[2020-08-28] MEDS: ASCORBIC ACID 500 MG TABLET PO SCH ×2 (09:10→17:03)
[2020-08-28] MEDS: ASPIRIN 81 MG TABLET, ENT COATED PO SCH (09:10)
[2020-08-28] MEDS: FOLIC ACID 1 MG TABLET PO SCH (09:10)
[2020-08-28] MEDS: DEXAMETHASONE SOD PHOSPHATE INJ 4 MG/1 ML VIAL IV SCH (09:10)
[2020-08-28] MEDS: ENOXAPARIN SODIUM INJ 40 MG/0.4 ML DISP.SYRIN SUBCUT SCH (09:11)
--- NOTE | 2020-08-28 14:23 | PDOC DISCHARGE SUMMARY ---
Impression - Admit/DC Date/PCP Admission Date/Primary Care Provider: 08/24/20 18:37 Discharge Date: 08/28/20 - Discharge Diagnosis (1) Pneumonia due to COVID-19 virus Is this a current diagnosis for this admission?: Yes (2) Acute respiratory failure with hypoxia Is this a current diagnosis for this admission?: Yes (3) Diarrhea due to COVID-19 Is this a current diagnosis for this admission?: Yes (4) Alcohol use Is this a current diagnosis for this admission?: Yes - Additional Information Resuscitation Status: Full Code Discharge Diet: Regular Discharge Activity: Activity As Tolerated, Balance Activity w/Rest, Slowly Increase Activity Referrals: OLIVIA CHACON MD [ACTIVE STAFF] - 09/07/20 10:00 am Prescriptions: Albuterol Sulfate [Albuterol Sulfate Hfa] 1 - 2 gm IH Q4HP PRN #1 [email or web address] PRN Reason: Shortness Of Breath Folic Acid [Folvite 1 mg Tablet] 1 mg PO DAILY #90 tablet Thiamine HCl [Thiamine 100 mg Tablet] 100 mg PO DAILY #90 tablet Home Medications: Bupropion HCl [Bupropion Xl] 150 mg PO QAM 08/24/20 Acetaminophen [Tylenol 325 mg Tablet] 650 mg PO Q4HP PRN tablet 08/28/20 Albuterol Sulfate [Albuterol Sulfate Hfa] 1 - 2 gm IH Q4HP PRN #1 [email or web address] 08/28/20 Folic Acid [Folvite 1 mg Tablet] 1 mg PO DAILY #90 tablet 08/28/20 Guaifenesin [Robitussin Syrup 200 mg/10 ml Ud Cup] 200 mg PO Q4HP PRN udc 08/28/20 Thiamine HCl [Thiamine 100 mg Tablet] 100 mg PO DAILY #90 tablet 08/28/20 History of Present Illiness History of Present Illness: MADAY BRUNO is a 40 year old male with a past medical history significant for depression and heavy EtOH use (sixpack beer daily; no history of dependence/withdrawal) who tested positive for COVID-19 on 08/16/2020 at the [facility]. Patient reports that he has had progressively worsening fatigue, generalized malaise, dyspnea on exertion (able to walk approximately 10 to 15 feet prior to needing to rest), 3-4 word tachypnea, nonproductive cough, pleuritic chest pain, subjective fever with shaking chills and night sweats, loss of taste and smell, and diarrhea. Patient reports that his spouse tested positive at the same time; she has recovered well but he continued to worsen. After prompting from her, he sought evaluation in the emergency department. In the emergency department he was found to have a fever of 99.6, tachycardia (HR 104) slightly elevated blood pressure, tachypnea (RR 40), and hypoxia on room air (90%). CBC showed neutrophilia, ABG reveals uncompensated respiratory alkalosis, and chemistry overall unremarkable. Chest x-ray demonstrates bibasilar infiltrates. He was provided supplemental oxygen, Solu-Medrol, and azithromycin. He is referred to the hospitalist service for further evaluation and management of the above-stated complaints and findings. Hospital Course Hospital Course: (1) Pneumonia due to COVID-19 virus Improved. Now maintaining oxygen saturations >94% while ambulatory on room air. Patient tested COVID positive 08/16/2020 at outpatient facility. D-dimer 0.67 Ferritin 1390, LDH 389, CRP 86.6 Sputum culture pending. Blood culture (1/4 bottles) with Staph epi and Staph simulans. 1 bottle from the other set w/ Staph epi. Contaminants. Patient was admitted to the medical floor on continuous cardiac telemetry and pulse oximetry. He was provided supplemental oxygen and CPAP as needed maintain saturations greater than 90%. He was supported with as needed nebulizer treatments. Received IV dexamethasone. Completed full course of Azithromycin and Remdesivir. Did not receive convalescent plasma. Zinc, vitamin D, vitamin C, and melatonin supplementation provided daily. Discussed that patient may continue these as an outpatient. Encourage continued pulmonary toilet following discharge. Isolation precautions; continue quarantine at home for an additional 2 days. (2) Acute respiratory failure with hypoxia Resolved. Now maintaining oxygen saturations >94% while ambulatory on room air. Secondary to #1. ABG showed uncompensated respiratory alkalosis with hypoxia. Chest x-ray shows bilateral infiltrates. Evaluation management as above. (3) Diarrhea due to COVID-19 No further episodes of diarrhea. Encourage p.o. fluid. (4) Alcohol use No withdrawal symptoms during his admission. Patient admits to drinking 6 cans of beer daily. He denies history of dependence or withdrawal. Decreased alcohol intake is encouraged. Monitored CIWA every 4 hours. As needed Ativan was available for score >10. None needed this admission. Continue daily thiamine and folic acid supplementation. Physical Exam Vital Signs: Temp Pulse Resp BP Pulse Ox 98.7 F 86 20 132/82 H 96 08/28/20 11:46 08/28/20 11:46 08/28/20 11:46 08/28/20 11:46 08/28/20 11:46 Intake & Output 08/27/20 08/28/20 08/29/20 06:59 06:59 06:59 Intake Total 1979 1849 Balance 1979 1849 Weight 124 kg 131.4 kg General appearance: PRESENT: no acute distress, cooperative, well-developed, well-nourished - Overweight Head exam: PRESENT: atraumatic, normocephalic Eye exam: PRESENT: conjunctiva pink, EOMI, PERRLA. ABSENT: scleral icterus Mouth exam: PRESENT: moist, tongue midline Respiratory exam: PRESENT: clear to auscultation tonya, symmetrical, unlabored, other - Room air. ABSENT: rales, rhonchi, wheezes Cardiovascular exam: PRESENT: RRR, +S1, +S2. ABSENT: diastolic murmur, rubs, systolic murmur Vascular exam: PRESENT: normal capillary refill GI/Abdominal exam: PRESENT: normal bowel sounds, soft. ABSENT: distended, guarding, mass, organolmegaly, rebound, tenderness Rectal exam: PRESENT: deferred Extremities exam: PRESENT: full ROM. ABSENT: calf tenderness, clubbing, pedal edema Musculoskeletal exam: PRESENT: ambulatory - On room air Neurological exam: PRESENT: alert, awake, oriented to person, oriented to place, oriented to time, oriented to situation, CN II-XII grossly intact. ABSENT: motor sensory deficit Psychiatric exam: PRESENT: appropriate affect, normal mood. ABSENT: homicidal ideation, suicidal ideation Skin exam: PRESENT: dry, intact, warm. ABSENT: cyanosis, rash Results Laboratory Results: WBC 10.1 10^3/uL (4.0-10.5) 08/28/20 06:18 RBC 4.05 10^6/uL (4.35-5.55) L 08/28/20 06:18 Hgb 12.8 g/dL (13.5-17.0) L 08/28/20 06:18 Hct 35.9 % (37.9-51.0) L 08/28/20 06:18 MCV 89 fl (80-97) 08/28/20 06:18 MCH 31.6 pg (27.0-33.4) 08/28/20 06:18 MCHC 35.6 g/dL (32.0-36.0) 08/28/20 06:18 RDW 13.2 % (11.5-14.0) 08/28/20 06:18 Plt Count 338 10^3/uL (150-450) 08/28/20 06:18 Lymph % (Auto) Not Reportable 08/28/20 06:18 [place] % (Auto) Not Reportable 08/28/20 06:18 Eos % (Auto) Not Reportable 08/28/20 06:18 Baso % (Auto) Not Reportable 08/28/20 06:18 Absolute Neuts (auto) Not Reportable 08/28/20 06:18 Absolute Lymphs (auto) Not Reportable 08/28/20 06:18 Absolute Monos (auto) Not Reportable 08/28/20 06:18 Absolute Eos (auto) Not Reportable 08/28/20 06:18 Absolute Basos (auto) Not Reportable 08/28/20 06:18 Total Counted 100 08/28/20 06:18 Seg Neutrophils % Not Reportable 08/28/20 06:18 Seg Neuts % (Manual) 79 % (42-78) H 08/28/20 06:18 Band Neutrophils % 3 % (3-5) 08/28/20 06:18 Lymphocytes % (Manual) 12 % (13-45) L 08/28/20 06:18 Monocytes % (Manual) 6 % (3-13) 08/28/20 06:18 Eosinophils % (Manual) 0 % (0-6) 08/28/20 06:18 Basophils % (Manual) 0 % (0-2) 08/28/20 06:18 Abs Neuts (Manual) 8.3 10^3/uL (1.7-8.2) H 08/28/20 06:18 Abs Lymphs (Manual) 1.2 10^3/uL (0.5-4.7) 08/28/20 06:18 Abs Monocytes (Manual) 0.6 10^3/uL (0.1-1.4) 08/28/20 06:18 Absolute Eos (Manual) 0.0 10^3/uL (0.0-0.6) 08/28/20 06:18 Abs Basophils (Manual) 0.0 10^3/uL (0.0-0.2) 08/28/20 06:18 Platelet Comment ADEQUATE 08/28/20 06:18 Polychromasia SLIGHT 08/28/20 06:18 RBC Morph Comment NORMO-CYTIC/CHROMIC 08/27/20 06:55 D-Dimer 0.67 ug/mL (0.00-0.50) H 08/24/20 19:45 Carbonic Acid 0.88 mmol/L (1.05-1.35) L 08/24/20 15:55 HCO3/H2CO3 Ratio 27:1 08/24/20 15:55 ABG pH 7.54 (7.35-7.45) H 08/24/20 15:55 ABG pCO2 29.1 mmHg (35-45) L 08/24/20 15:55 ABG pO2 56.9 mmHg (80-100) L 08/24/20 15:55 ABG HCO3 24.3 mmol/L (20-24) H 08/24/20 15:55 ABG Total CO2 25.2 mmol/L (23-27) 08/24/20 15:55 ABG O2 Saturation 93.0 % (94-98) L 08/24/20 15:55 ABG Base Excess 2.7 mmol/L 08/24/20 15:55 FiO2 ROOM AIR 08/24/20 15:55 Sodium 137.0 mmol/L (137-145) 08/28/20 06:18 Potassium 4.2 mmol/L (3.6-5.0) 08/28/20 06:18 Chloride 99 mmol/L (98-107) 08/28/20 06:18 Carbon Dioxide 28 mmol/L (22-30) 08/28/20 06:18 Anion Gap 10 (5-19) 08/28/20 06:18 BUN 12 mg/dL (7-20) 08/28/20 06:18 Creatinine 0.67 mg/dL (0.52-1.25) 08/28/20 06:18 Est GFR ( Amer) > 60 (>60) 08/28/20 06:18 Est GFR (MDRD) Non-Af > 60 (>60) 08/28/20 06:18 Glucose 91 mg/dL (75-110) 08/28/20 06:18 Calcium 8.5 mg/dL (8.4-10.2) 08/28/20 06:18 Ferritin 1390.00 ng/mL (17.9-464.0) H 08/24/20 19:45 Total Bilirubin 0.7 mg/dL (0.2-1.3) 08/28/20 06:18 Direct Bilirubin 0.2 mg/dL (0.0-0.4) 08/28/20 06:18 Neonat Total Bilirubin Not Reportable 08/28/20 06:18 Neonat Direct Bilirubin Not Reportable 08/28/20 06:18 Neonat Indirect Bili Not Reportable 08/28/20 06:18 AST 36 U/L (17-59) 08/28/20 06:18 ALT 70 U/L (<50) H 08/28/20 06:18 Alkaline Phosphatase 67 U/L (38-126) 08/28/20 06:18 Lactate Dehydrogenase 389 U/L (120-246) H 08/24/20 19:45 Troponin I < 0.012 ng/mL 08/24/20 12:50 C-Reactive Protein 86.6 mg/L (<10.0) H 08/24/20 19:45 Total Protein 6.1 g/dL (6.3-8.2) L 08/28/20 06:18 Albumin 3.2 g/dL (3.5-5.0) L 08/28/20 06:18 Blood Type B POSITIVE 08/24/20 19:45 Antibody Screen NEGATIVE 08/24/20 19:45 08/24/20 12:50 Troponin I < 0.012 Impressions: Chest X-Ray 08/24/20 13:07 IMPRESSION: Atelectasis or infiltrate both lower lung zones. Scarring possible but cannot be determined without previous imaging studies of the chest. Plan Plan of Treatment: Patient is discharged home in stable condition. He is advised follow-up with his primary care provider as scheduled. Rest. Drink plenty of fluids. Slowly increase activity as tolerated. He is instructed on continued quarantine at home through 08/30/2020 at which time he will have been Covid tested greater than 10 days ago, afebrile, and asymptomatic for greater than 48 hours. He is advised to return to the emergency department, as needed, for concerning symptoms. Time Spent: Greater than 30 Minutes Stroke Is this a Stroke Patient?: No Acute Heart Failure Is this a Heart Failure Patient?: No
[2020-08-28] MEDS ORDERED: REMDESIVIR (EUA) 100 MG in NORMAL SALINE 250 ML IV ONE (17:30)
[2020-08-28 18:09] VITALS: BP 145/81
== END 2020-08-28 18:39 | disposition home or self-care (01) | DRG 177 ==
LOC: ER 12:15 → EH 18:37 → 3N 21:49
PROVIDERS: ADMIT Hospitalist; ATTEND Registered Nurse
PROC: XW033E5 Introduction of Remdesivir Anti-infective into Peripheral Vein, Percutaneous Approach, New Technology Group 5 (ICD-10-PCS; 2020-08-25)
PROC: XW033E5 Introduction of Remdesivir Anti-infective into Peripheral Vein, Percutaneous Approach, New Technology Group 5 (ICD-10-PCS; 2020-08-27)
PROC: XW033E5 Introduction of Remdesivir Anti-infective into Peripheral Vein, Percutaneous Approach, New Technology Group 5 (ICD-10-PCS; principal; 2020-08-28)
DX: U07.1 COVID-19 (principal); J12.89 Other viral pneumonia; J96.01 Acute respiratory failure with hypoxia; F32.9 Major depressive disorder, single episode, unspecified; Z79.899 Other long term (current) drug therapy; Z72.89 Other problems related to lifestyle; R19.7 Diarrhea, unspecified
CPT/HCPCS: 36415; 71045; 80053; 82728; 82803; 83615; 84484; 85025; 85379; 86140; 86850; 86900; 86901; 87040; 87070; 87077; 87150; 87186; 87205; 93005; 93010; 94660; 96365; 96375; 99285; J0456; J1100; J1650; J2930; J3490; J7050